=== PATIENT | male | born 1985 | race Caucasian/White ===

== ENCOUNTER 2021-04-05 20:00 | Emergency (ER) | payer OTHER ==
[~2021-04-05] VITALS: Ht 180.3 cm; Wt 86.2 kg
[2021-04-05] MEDS ORDERED: BUSPIRONE HCL10 MG PO (21:57)
[2021-04-05] MEDS ORDERED: EYE ITCH RELIEF5 ML (21:57)
[2021-04-05] MEDS ORDERED: PROZAC20 MG PO (21:57)
[2021-04-05] MEDS ORDERED: VALIUM2 MG PO (21:58)
[2021-04-05] MEDS ORDERED: MELATONIN1 MG PO (21:58)
[2021-04-05] MEDS ORDERED: ASPIRIN81 MG PO (21:59)
--- NOTE | 2021-04-06 13:29 | EKG ---
[facility] [address] [place] [address] Signed Normal sinus rhythm Possible Left atrial enlargement Borderline ECG No previous ECGs available Confirmed by TOM LUNA DO ([id number]) on 04/06/2021 1:28:51 PM Electronically Signed By: TOM LUNA DO 04/06/21 1329 PATIENT NAME: STAR SHAIKH Electrocardiogram DATE OF : 85 PHYSICIAN: TOM LUNA DO REPORT #: [id number] REPORT IS CONFIDENTIAL AND NOT TO BE RELEASED WITHOUT AUTHORIZATION
== END 2021-04-05 21:50 | disposition home or self-care (01) ==
LOC: ED 20:00
DX: R06.00 Dyspnea, unspecified (principal); Z87.891 Personal history of nicotine dependence
CPT/HCPCS: 71046; 80053; 83735; 84484; 85025; 85379; 93005; 93010; 99285-25